=== PATIENT | female | born 1975 | race Caucasian/White ===

== ENCOUNTER 2016-11-23 19:02 | Observation (INO) ==
[2016-11-23 20:04] LABS: Bilirubin,Urine Negative (Negative); Blood,Urine Negative (Negative); Clarity,Urine Clear (Clear); Color,Urine Yellow (Yellow); Glucose,Urine (UA) >=1000 mg/dL (Normal); Ketones,Urine Negative (Negative); Leukocyte Esterase,Urine Negative (Negative); Nitrite,Urine Negative (Negative); Protein,Urine Negative (Neg-Trace); Specific Gravity,Urine > 1.030 (1.010-1.025); Urobilinogen,Urine Normal (Normal)
[2016-11-23 20:11] LABS: Basophils % 0.4 %; Eosinophils # 0.1 K/mcL (0.0-0.6); Hematocrit 41.9 % (35.3-44.9); Hemoglobin 14.4 g/dL (11.5-15.4); Immature Granulocytes % 0.6 % (0-4); Immature Platelets 7.4 % (1.1-6.1); Lymphocytes # 3.1 K/mcL (0.6-4.6); Lymphocytes % 37.3 %; Mean Corpuscular HGB Conc 34.4 g/dL (31.6-35.5); Mean Corpuscular Hemoglobin 30.3 pg (28.0-33.3); Mean Platelet Volume 11.7 fL (9.4-12.4); Monocytes # 0.4 K/mcL (0.0-1.3); Neutrophils # 4.7 K/mcL (1.6-8.9); Platelet Count 243 K/mcL (140-400); Red Blood Count 4.76 M/mcL (3.82-4.97); Segmented Neutrophils % 55.7 %
[2016-11-23 21:41] LABS: Potassium 4.2 mEq/L (3.5-4.5)
[2016-11-23 21:42] LABS: BUN/Creatinine Ratio 14 (6-26); Blood Urea Nitrogen 12 mg/dL (7-20); Carbon Dioxide 16 mEq/L (19-29); Chloride 119 mEq/L (98-109); Glucose 384 mg/dL (70-99); Osmolality,Calculated 328 (280-300); eGFR For African Americans > 60 (> 60); eGFR For Non-African Americans > 60 (> 60)
[2016-11-23 21:43] LABS: Calcium 9.1 mg/dL (8.6-10.8); Sodium 151 mEq/L (136-145)
[2016-11-23] MEDS ORDERED: 0.9 % Sodium Chloride 1,000 ML IVC ONE (21:47)
--- NOTE | 2016-11-23 22:10 | Emergency Department Note ---
Disposition Clinical Impression: Vaginitis Qualifiers: Chronicity: chronic Qualified Code(s): N76.1 - Subacute and chronic vaginitis Diabetes Qualifiers: Diabetes mellitus type: other specified (including KIMBERLY) Diabetes mellitus complication status: with unspecified complications Diabetes mellitus prison insulin use: unspecified prison insulin use status Qualified Code(s): E13.8 - Other specified diabetes mellitus with unspecified complications Diabetic ketoacidosis Qualifiers: Diabetes mellitus type: other specified (including KIMBERLY) Diabetes mellitus complication detail: without coma Qualified Code(s): E13.10 - Other specified diabetes mellitus with ketoacidosis without coma Disposition: Admitted As Inpatient Condition: Good Referrals: Julisa Draper MD [Primary Care Provider] - Forms: ED Satisfaction Letter Time of Disposition: 22:27 Female Urogenital HPI - General Chief complaint: ED Urogenital-Female Stated complaint: Yeast infection Time Seen by Provider: 11/23/16 19:08 Source: patient Limitations: no limitations Nursing Notes Reviewed: Yes Vital Signs Reviewed: Yes - History of Present Illness HPI Narrative: Patient presents to emergency room with complaint of vaginal itching. She has had these symptoms for over a year. She has been on multiple doses of nystatin with some intermittent relief. She does not fall directly with an OB physician or primary care provider. She denies any other issues or complaints at this time Pt Subjective Complaint: vaginal discharge Onset (ago): month(s) Location: labia Radiation: non-radiating Severity: severe Severity scale (1-10): 10 Quality: aching Duration: constant Improves with: none Worsens with: urination, movement Sexual activity: no : no Associated symptoms: Reports: denies other symptoms - Related Data Allergies Allergy/AdvReac Type Severity Reaction Status Date / Time No Known Allergies Allergy Verified 11/23/16 19:06 All systems ED: reviewed and negative except as stated. Constitutional: Denies: fever Cardiovascular: Denies: chest pain, palpitations Respiratory: Denies: dyspnea, wheezes Gastrointestinal: Denies: nausea, vomiting, diarrhea Genitourinary: Reports: dysuria, discharge Musculoskeletal: Denies: back pain, neck pain Integumentary: Reports: rash Past Medical History - Past Medical History Attestation: Yes The following information was validated with the patient. Source: patient Medical history: Reports: diabetes - Social History Smoking Status: Never smoker Smokeless Tobacco Status: No Alcohol use: Reports: none Drug use: Reports: none Physical Exam - General Limitations: no limitations General appearance: alert - Chest Chest inspection: Present: normal inspection, symmetric chest wall rise - Respiratory Respiratory exam: Present: normal lung sounds bilaterally. Absent: respiratory distress, wheezes - Cardiovascular Cardiovascular exam: Present: regular rate, normal rhythm, normal heart sounds - Extremities Exam Extremities exam: Present: normal inspection, full ROM, normal capillary refill. Absent: tenderness - Back Exam Back exam: Present: normal inspection, full ROM. Absent: tenderness, CVA tenderness (R), CVA tenderness (L) - Neurological Exam Neurological exam: Present: alert, oriented X3, CN II-XII intact, normal gait - Psychiatric Psychiatric exam: Present: normal affect, normal mood - Skin Skin exam: Present: warm, dry, intact, normal color Course Course Narrative: Patient seen and examined the time arrival. See history of present illness. 41 -year-old female presents emergency room complaining of vaginal itching. Had the symptoms for approximately one year. She has not been seen by her primary care provider or her OB physician. She has been on multiple doses of Diflucan and Monistat without any symptom relief. She only gets intermittent symptom relief. Patient is a diabetic although she does have issues with compliance of her medication. Patient denies any recent trauma injuries. Denies nausea vomiting or diarrhea. Denies fevers or chills chest pain or shortness of breath. Main complaint is uncontrolled vaginal itching. Based on physical exam patient on basic laboratory workup secondary to her persistent vaginal related issue. We will also do a pelvic examination. The concern is that she is a poorly controlled diabetic getting repeat vaginal infections at this time. Vital signs are reviewed and she is stable. Lungs are clear heart is regular abdomen is soft. Pelvic examination be completed at the bedside. Basic CBC chemistry urinalysis ordered at this time. Patient has no other symptoms or complaints of the time. Disposition pending workup and treatment - Reevaluation(s) Reevaluation #1: Patient phone at a significantly elevated glucose. There is concern basic chemistry panel does show signs of acidemia. After looking at the labs Did discuss this with the patient and her did say that she has been in DKA in the past. Vaginal examination completed at the bedside showing profound discharged with erythema and edema to the pelvic area. Vaginal vault evaluated showing white count she is a discharge in that area. Symptoms appear to be consistent with a yeast infection. Labs to add on at this time will be addressing acetone and a venous blood gas. Fluid boluses to be given at this time. Concern is for patient incidentally being in DKA at this point. Once his labs are resulted patient be started on possible insulin drip for treatment course. Time: 21:30 Reevaluation #2: Hydroxy butyric acid is elevated and the VBG does show some mild acidemia. Insulin drip ordered at this time along with 2 more liters of fluid. First dose of oral Diflucan given at this time as well. Admission process to be completed for what appears to be acute diabetic ketoacidosis secondary to most likely viral illness or her underlying vaginal issue. Swab sent at this time. Disposition pending this workup and treatment course. Admission process to be completed. Hospitals paged Time: 22:24 Reevaluation #3: Patient's medical issues are reviewed with the hospitals. Detailed review the presentation symptoms were discussed. Recommended patient be admitted to the [address] [place] [address] for evaluation treatment of DKA and fluid hydration. No other recommendations at this time. Admission process to be completed. Patient family informed of her comfortable with this plan. We will continue monitoring in the emergency room until admission process is completed at this time Time: 23:02 Vital Signs Temperature 97.9 F 11/23/16 19:03 Pulse Rate 105 11/23/16 19:03 Respiratory Rate 18 11/23/16 19:03 Blood Pressure 116/88 11/23/16 19:03 O2 Sat by Pulse Oximetry 94 11/23/16 19:03 Temperature 97.9 F 11/23/16 19:03 Pulse Rate 105 11/23/16 19:03 Respiratory Rate 18 11/23/16 19:03 Blood Pressure 116/88 11/23/16 19:03 O2 Sat by Pulse Oximetry 94 11/23/16 19:03 Oxygen Delivery Oxygen Delivery Room Air Urogenital-Female - MDM Narrative Medical decision making narrative: Vaginitis secondary to yeast infection, diabetic ketoacidosis, dehydration, - Medical Records Medical records reviewed: Yes I reviewed the patient's medical records. - Lab Data Lab results reviewed: Yes I reviewed the patient's lab results. Result diagrams: 11/23/16 20:01 11/23/16 20:01 Lab Results 11/23/16 11/23/16 11/23/16 Range/Units 19:56 19:56 20:01 WBC 8.4 (4.3-11.1) K/mcL RBC 4.76 (3.82-4.97) M/mcL Hgb 14.4 (11.5-15.4) g/dL Hct 41.9 (35.3-44.9) % MCV 88.0 (83.0-100.0) fL MCH 30.3 (28.0-33.3) pg MCHC 34.4 (31.6-35.5) g/dL RDW 13.0 (11.5-14.5) % Plt Count 243 (140-400) K/mcL MPV 11.7 (9.4-12.4) fL Immature Gran % 0.6 (0-4) % Seg Neutrophils % 55.7 % Lymphocytes % 37.3 % Monocytes % 5.0 % Eosinophils % 1.0 % Basophils % 0.4 % Neutrophils # 4.7 (1.6-8.9) K/mcL Lymphocytes # 3.1 (0.6-4.6) K/mcL Monocytes # 0.4 (0.0-1.3) K/mcL Eosinophils # 0.1 (0.0-0.6) K/mcL Basophils # 0.0 (0.0-0.2) K/mcL Immature Plt Fraction 7.4 H (1.1-6.1) % VBG pH (7.32-7.42) pH Units VBG pCO2 (41-51) mmHg VBG pO2 (25-40) mmHg VBG HCO3 (21-27) mEq/L Sodium (136-145) mEq/L Potassium (3.5-4.5) mEq/L Chloride (98-109) mEq/L Carbon Dioxide (19-29) mEq/L BUN (7-20) mg/dL Creatinine (0.57-1.11) mg/dL Est GFR ( Amer) (> 60) Est GFR (Non-Af Amer) (> 60) BUN/Creatinine Ratio (6-26) Glucose (70-99) mg/dL Calculated Osmolality (280-300) Calcium (8.6-10.8) mg/dL Beta-Hydroxybutyric Acd (0.02-0.27) mmol/L Urine Color Yellow (Yellow) Urine Clarity Clear (Clear) Urine pH 6.0 (5.0-8.0) pH Units Ur Specific Cobb > 1.030 H (1.010-1.025) Urine Protein Negative (Neg-Trace) mg/dL Urine Glucose (UA) >=1000 H (Normal) mg/dL Urine Ketones Negative (Negative) mg/dL Urine Blood Negative (Negative) Urine Nitrite Negative (Negative) Urine Bilirubin Negative (Negative) Urine Urobilinogen Normal (Normal) mg/dL Ur Leukocyte Esterase Negative (Negative) Ur Culture Indicated? NO (NO) Urine Test Negative (Negative) 11/23/16 11/23/16 11/23/16 Range/Units 20:01 20:01 22:16 WBC (4.3-11.1) K/mcL RBC (3.82-4.97) M/mcL Hgb (11.5-15.4) g/dL Hct (35.3-44.9) % MCV (83.0-100.0) fL MCH (28.0-33.3) pg MCHC (31.6-35.5) g/dL RDW (11.5-14.5) % Plt Count (140-400) K/mcL MPV (9.4-12.4) fL Immature Gran % (0-4) % Seg Neutrophils % % Lymphocytes % % Monocytes % % Eosinophils % % Basophils % % Neutrophils # (1.6-8.9) K/mcL Lymphocytes # (0.6-4.6) K/mcL Monocytes # (0.0-1.3) K/mcL Eosinophils # (0.0-0.6) K/mcL Basophils # (0.0-0.2) K/mcL Immature Plt Fraction (1.1-6.1) % VBG pH 7.40 (7.32-7.42) pH Units VBG pCO2 43 (41-51) mmHg VBG pO2 44 H (25-40) mmHg VBG HCO3 26.6 (21-27) mEq/L Sodium 151 H (136-145) mEq/L Potassium 4.2 (3.5-4.5) mEq/L Chloride 119 H (98-109) mEq/L Carbon Dioxide 16 L (19-29) mEq/L BUN 12 (7-20) mg/dL Creatinine 0.88 (0.57-1.11) mg/dL Est GFR ( Amer) > 60 (> 60) Est GFR (Non-Af Amer) > 60 (> 60) BUN/Creatinine Ratio 14 (6-26) Glucose 384 H (70-99) mg/dL Calculated Osmolality 328 H (280-300) Calcium 9.1 (8.6-10.8) mg/dL Beta-Hydroxybutyric Acd 0.32 H (0.02-0.27) mmol/L Urine Color (Yellow) Urine Clarity (Clear) Urine pH (5.0-8.0) pH Units Ur Specific Cobb (1.010-1.025) Urine Protein (Neg-Trace) mg/dL Urine Glucose (UA) (Normal) mg/dL Urine Ketones (Negative) mg/dL Urine Blood (Negative) Urine Nitrite (Negative) Urine Bilirubin (Negative) Urine Urobilinogen (Normal) mg/dL Ur Leukocyte Esterase (Negative) Ur Culture Indicated? (NO) Urine Test (Negative) Attestation Statement - Attestation Attestation: I personally interviewed and examined this patient and my medical decision- making was reviewed with the ED Resident Physician, Dr. Glass. I agree with the documented findings, disposition and treatment plan as described except to the extent set forth below. Patient is a 41-year-old white female brought to the emergency department today by her for recurrent yeast vaginitis. Patient does have a history of diabetes mellitus and is poorly compliant with her medication regimen. Patient does suffer for some from some long-term memory issues and am not sure if this is a component in regards to her compliance with medications. Patient states over the past year she has had chronic recurrent episodes of yeast vaginitis most likely due to her poor diabetic compliance. Patient's been hospitalized twice in the past 4 years for DKA. Patient states that her blood sugars been running a little high but unclear as to what her actual Accu-Cheks. Patient denies any chest pain or pressure, no shortness of breath, no abdominal pain or cramping, no nausea vomiting, patient does complain of some urinary burning as well as vaginal burning and itching and whitish vaginal discharge. We obtained initial urinalysis and which was within normal limits. Patient had pelvic exam which I directly supervised showing a whitish vaginal discharge, wet prep and GC chlamydial cultures were obtained and sent for which are pending at this time. Patient also had IV established with a liter of fluids initiated and blood work which showed evidence of acute Acidosis with hyperglycemia. Patient's beta hydroxybutyrate was elevated consistent with DKA. IV fluids were continued and insulin drip initiated in the ED. Patient's mentation has been stable over time, she is in no acute distress. Explained results with patient has been in regards to admission to the hospital for DKA management. Patient was also given Diflucan for the yeast vaginitis. No obvious infections were found on initial lab workup here in the ED. Patient was accepted for admission by the hospitalist for further evaluation and treatment of her DKA, and yeast vaginitis.
[2016-11-23] MEDS ORDERED: Insulin Regular, Human 100 UNIT/ML IV ONE (22:13)
[2016-11-23] MEDS ORDERED: Insulin Regular, Human 100 UNIT/ML IV PRN (22:13)
[2016-11-23] MEDS ORDERED: *HR* Dextrose 50 % in Water (Syg) 50 ML SYRINGE IVP PRN (22:13)
[2016-11-23] MEDS ORDERED: Insulin Human Regular 100 UNIT in 0.9 % Sodium Chloride 100 ML IVC SCH (22:15)
[2016-11-23 22:28] LABS: VBG HCO3 26.6 mEq/L (21-27); VBG PH 7.4 pH Units (7.32-7.42)
[2016-11-23] MEDS: Fluconazole 100 MG TABLET PO SCH (22:44)
[2016-11-23 23:09] LABS: Candida DNA Not Detected (Not Detect); Gardnerella DNA Not Detected (Not Detect); Trichomonas DNA Not Detected (Not Detect)
[2016-11-23] MEDS ORDERED: D5% in 0.45% NACL 1,000 ML IVC PRN (23:30)
[2016-11-23] MEDS ORDERED: 0.45 % Sodium Chloride w/KCl 20 MEQ/1,000 ML MLS IVC SCH ×2 (23:30→23:45)
[2016-11-23] MEDS ORDERED: D5% in Water 1,000 ML IVC ONE (23:32)
[2016-11-23] MEDS: 0.9 % Sodium Chloride 1,000 ML IVC SCH (23:37)
[2016-11-23] MEDS ORDERED: Acetaminophen 325 MG TABLET PO PRN (23:38)
[2016-11-23] MEDS ORDERED: Naloxone 0.4 MG/ML INJ IVP PRN (23:38)
--- NOTE | 2016-11-23 23:48 | Internal Med History&Physical ---
Date of Encounter: 11/23/16 Time of Encounter: 22:00 Assessment and Plan (1) Diabetic ketoacidosis Current visit: Yes Status: Acute Patient has increased AG and increased osmolarity. Consider DKA and HHS. - We will give patient aggressive IV fluid. - Insulin drip started from the emergency room. - Closer monitor glucoses and electrolytes - Start DKA/HHS protocol - Consult patient educator Qualifiers: Diabetes mellitus type: type 2 Diabetes mellitus complication detail: without coma Qualified Code(s): E13.10 - Other specified diabetes mellitus with ketoacidosis without coma (2) Brain tumor, glioma Current visit: Yes Status: Acute Patient is a following her neurosurgeon at [place] ([place]?) (3) Vaginitis Current visit: Yes Status: Acute Will give patient fluconazole 200 mg daily. Also better glucose control will decrease the chance of fungal vaginitis Qualifiers: Chronicity: chronic Qualified Code(s): N76.1 - Subacute and chronic vaginitis (4) DVT prophylaxis Current visit: Yes Status: Acute Heparin subcutaneously Internal Medicine - H&P: HPI Chief complaint: Virginal itching Admitted From: Home Plans for Post Hospital Care: Home History of present illness: Ms. 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 She has history of diabetes and virginal fungal infection. The emergency room. She was found and controlled the diabetes with DKA and HHS. Patient said she does have thirsty, polydipsia and polyuria recently. She denies nausea, vomiting, abdominal pain, chest pain, or shortness of breath. Patient to take Lantus 60 units every day at bedtime and sliding scale. She said she missed the Lantus dose on and Thursday. She was admitted as DKA and HHS. I discussed the CODE STATUS with patient. She is full code. Past Med Surg Social Fam HX - Past Medical History Source: patient Medical history: diabetes, other (Brain glioma) - Past Surgical History Surgical History: other (Brain tumor surgery) - Social History Smoking Status: Never smoker Smokeless Tobacco Status: No Alcohol use: none Drug use: none Internal Medicine - H&P: Meds Allergies No Known Allergies Allergy (Verified 11/23/16 19:06) All Systems PM: A 10-system review of systems was performed and is negative for pertinent findings except as documented above in the HPI. - Constitutional Vitals: Temp Pulse Resp BP Pulse Ox 97.9 F 105 18 121/77 94 11/23/16 19:03 11/23/16 19:03 11/23/16 23:46 11/23/16 23:46 11/23/16 19:03 General appearance: Present: A&O X 3, no acute distress, answers questions appropriately - Head Head exam: Present: atraumatic, normocephalic - Eye Eye exam: Present: PERRL, conjuntiva pink, sclera anicteric Pupils: Present: PERRL - Neck Neck exam general surgery: Present: supple, trachea midline. Absent: lymphadenopathy - Respiratory Respiratory exam: Present: CTAB. Absent: accessory muscle use, rales, rhonchi, wheezes - Cardiovascular Cardiovascular exam: Present: RRR, +S1, +S2. Absent: diastolic murmur, gallop, rubs, systolic murmur - GI/Abdominal GI/Abdominal exam: Present: normal bowel sounds, soft, no peritoneal signs. Absent: distended, tenderness - Extremities Exam Extremities exam: Present: warm, radial pulses palpable and symetrical. Absent : calf tenderness, cyanotic, pedal edema - Neurological Exam Neurological exam: Present: CN II-XII intact, oriented X3, no focal deficits. Absent: pronater drift, facial droop, speech deficit - Skin Skin exam: Present: dry, intact Internal Med - H&P Results - Labs CBC & Chem 7: 11/24/16 01:19 11/24/16 04:40
[2016-11-24 01:29] LABS: Basophils % 0.4 %; Eosinophils # 0.1 K/mcL (0.0-0.6); Eosinophils % 1.5 %; Hematocrit 38.6 % (35.3-44.9); Immature Granulocytes % 0.5 % (0-4); Lymphocytes # 3.1 K/mcL (0.6-4.6); Lymphocytes % 41.2 %; Mean Corpuscular HGB Conc 33.7 g/dL (31.6-35.5); Mean Corpuscular Volume 89.1 fL (83.0-100.0); Mean Platelet Volume 11.4 fL (9.4-12.4); Monocytes # 0.4 K/mcL (0.0-1.3); Monocytes % 5.5 %; Neutrophils # 3.9 K/mcL (1.6-8.9); Platelet Count 197 K/mcL (140-400); Red Blood Count 4.33 M/mcL (3.82-4.97); Red Cell Distribution Width 12.9 % (11.5-14.5); Segmented Neutrophils % 50.9 %
[2016-11-24 01:38] LABS: BUN/Creatinine Ratio 11 (6-26); Blood Urea Nitrogen 8 mg/dL (7-20); Calcium 8.8 mg/dL (8.6-10.8); Carbon Dioxide 19 mEq/L (19-29); Chloride 112 mEq/L (98-109); Glucose 249 mg/dL (70-99); Hemoglobin A1C 13.6 %; Osmolality,Calculated 301 (280-300); Potassium 3.5 mEq/L (3.5-4.5); Sodium 142 mEq/L (136-145); eGFR For African Americans > 60 (> 60); eGFR For Non-African Americans > 60 (> 60)
[2016-11-24 01:41] LABS: Magnesium 2.9 mg/dL (1.6-2.6); Phosphorous 2.8 mg/dL (2.3-4.7)
[2016-11-24 05:00] LABS: BUN/Creatinine Ratio 15 (6-26); Blood Urea Nitrogen 11 mg/dL (7-20); Calcium 8.5 mg/dL (8.6-10.8); Carbon Dioxide 20 mEq/L (19-29); Chloride 111 mEq/L (98-109); Glucose 298 mg/dL (70-99); Osmolality,Calculated 300 (280-300); Sodium 140 mEq/L (136-145); eGFR For African Americans > 60 (> 60); eGFR For Non-African Americans > 60 (> 60)
[2016-11-24] MEDS ORDERED: D5% in Water 1,000 ML IVC PRN (05:17)
[2016-11-24] MEDS ORDERED: Dextrose Gel 15 GM PO PRN ×2 (05:17)
[2016-11-24] MEDS ORDERED: *HR* Dextrose 50 % in Water (Syg) 50 ML SYRINGE IVP PRN (05:17)
[2016-11-24] MEDS: 0.9 % Sodium Chloride 1,000 ML IVC SCH (07:47)
[2016-11-24] MEDS: Insulin DETEMIR 100 UNIT/ML X5UNITS SQ SCH ×3 (07:49→21:12)
[2016-11-24] MEDS: Insulin LISPRO 300 UNITS/3 ML VIAL SQ SCH ×3 (08:22→17:28)
[2016-11-24] MEDS: Fluconazole 100 MG TABLET PO SCH (08:23)
[2016-11-24] MEDS: *HR* Heparin 5,000 UNIT/ML VIAL SQ SCH ×2 (08:23→17:28)
[2016-11-24] MEDS: Terconazole Vag CRM 20 GM TUBE VG SCH ×2 (13:41→21:14)
[2016-11-24] MEDS ORDERED: Insulin DETEMIR 100 UNIT/ML X5UNITS SQ ONE (15:28)
--- NOTE | 2016-11-24 18:31 | Internal Med Progress Note ---
Date of Encounter: 11/24/16 Time of Encounter: 13:45 - Assessment and plan (1) Hyperglycemia due to type 2 diabetes mellitus Current Visit: Yes Status: Acute Assessment and plan: Hyperglycemia secondary to memory impairment. Patient has brain tumor and keeps forgetting to inject herself Lantus. Patient received IV fluid, and short course of insulin drip with rapid clinical improvement. Patient to start Levemir, sliding scale insulin and diabetic diet. We will attempt to speak with family regarding a better close monitor of her Lantus administration. Qualifiers: Diabetes mellitus halfway insulin use: with truck terminal manager use Qualified Code( s): E11.65 - Type 2 diabetes mellitus with hyperglycemia; Z79.4 - half-way ( current) use of insulin (2) Vaginitis Current Visit: Yes Status: Acute Assessment and plan: Vaginal candidiasis. Start terconazole vaginal cream. Qualifiers: Chronicity: chronic Qualified Code(s): N76.1 - Subacute and chronic vaginitis (3) Diabetes Current Visit: Yes Status: Acute Assessment and plan: Plan as above. Qualifiers: Diabetes mellitus type: type 2 Diabetes mellitus complication status: with hyperglycemia Diabetes mellitus truck terminal manager insulin use: with halfway use Qualified Code(s): E11.65 - Type 2 diabetes mellitus with hyperglycemia; Z79.4 - truck terminal manager (current) use of insulin (4) Brain tumor, glioma Current Visit: Yes Status: Chronic Assessment and plan: History of brain tumor. - Subjective Interval history: Patient denies any nausea, vomiting or abdominal pain. She ate all her breakfast. - Constitutional Vitals: Temp Pulse Resp BP Pulse Ox 98.2 F 85 15 107/71 96 11/24/16 14:53 11/24/16 14:53 11/24/16 14:53 11/24/16 14:53 11/24/16 14:53 General appearance: Present: cooperative, A&O X 3, pleasant, no acute distress, obese, answers questions appropriately - Respiratory Respiratory exam: Present: CTAB - Cardiovascular Cardiovascular exam: Present: RRR - GI/Abdominal GI/Abdominal exam: Present: normal bowel sounds, soft. Absent: distended, tenderness - Extremities Exam Extremities exam: Absent: pedal edema - Back Exam Back exam: Absent: CVA tenderness (L), CVA tenderness (R) - Neurological Exam Neurological exam: Present: alert, oriented X3, no focal deficits, strengths equal and symetr throughout. Absent: facial droop, speech deficit - Skin Skin exam: Absent: rash Internal Medicine: Result - Labs CBC & Chem 7: 11/24/16 01:19 11/24/16 04:40 Labs: Short CBC 11/24/16 Range/Units 01:19 WBC 7.6 (4.3-11.1) K/mcL Hgb 13.0 (11.5-15.4) g/dL Hct 38.6 (35.3-44.9) % Plt Count 197 (140-400) K/mcL Neutrophils # 3.9 (1.6-8.9) K/mcL BMP 11/24/16 11/24/16 01:19 04:40 Sodium 142 D 140 Potassium 3.5 4.0 Chloride 112 H 111 H Carbon Dioxide 19 20 BUN 8 11 Creatinine 0.71 0.75 Glucose 249 H 298 H Calcium 8.8 8.5 L Consult Discharge Plan - Plan Referrals: Julisa Draper MD [Primary Care Provider] - 12/16/16 10:00 am
[2016-11-24] MEDS ORDERED: Insulin LISPRO 300 UNITS/3 ML VIAL SQ SCH (21:00)
[2016-11-25] MEDS: *HR* Heparin 5,000 UNIT/ML VIAL SQ SCH (05:41)
[2016-11-25 07:09] VITALS: BP 101/62
[2016-11-25] MEDS: Insulin DETEMIR 100 UNIT/ML X5UNITS SQ SCH (08:32)
[2016-11-25] MEDS: Fluconazole 100 MG TABLET PO SCH (08:32)
[2016-11-25] MEDS: Insulin LISPRO 300 UNITS/3 ML VIAL SQ SCH (08:32)
--- NOTE | 2016-11-25 09:51 | Discharge Summary ---
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 (2) Vaginitis Priority: Primary Status: Acute Qualifiers: Chronicity: chronic Qualified Code(s): N76.1 - Subacute and chronic vaginitis (3) Diabetes Priority: Primary Status: Chronic Qualifiers: Diabetes mellitus type: type 2 Diabetes mellitus complication status: with hyperglycemia Diabetes mellitus fpc insulin use: with terminal operations manager use Qualified Code(s): E11.65 - Type 2 diabetes mellitus with hyperglycemia; Z79.4 - detention (current) use of insulin (4) Brain tumor, glioma Priority: Secondary Status: Chronic - Discharge Medications Prescriptions: Terconazole Vag CRM [Terazol] 1 appl VG HS #1 tube Home Medications: Citalopram Hydrobromide [Citalopram HBr] 10 mg PO DAILY 11/24/16 [History] Insulin Glargine,Hum.rec.anlog [Lantus Solostar] 60 unit SQ HS 11/24/16 [History ] Insulin LISPRO [Humalog Kwikpen U-100] 0 unit SQ TIDWM 11/24/16 [History] Terconazole Vag CRM [Terazol] 1 appl VG HS #1 tube 11/25/16 [Rx] Allergies/Adverse Reactions: Allergies No Known Allergies Allergy (Verified 11/24/16 09:49) Date of admission: 11/23/16 23:09 Primary care physician: Julisa Hull Consults: 11/23/16 23:47 Consult to [facility] [CONS] Routine Comment: Reason for Consult: DKA/HHS - Patient Status Disposition: Home, Self-Care Condition: Good Functional capacity at discharge: independent ambulation Overall status at discharge: patient is progressing back to baseline - Discharge Instructions Instructions: Diabetes Mellitus Type 2 in Adults (DC) Follow Up With: Julisa Draper MD [Primary Care Provider] - 12/16/16 10:00 am Additional Instructions: please monitor your sugars closely: before meals and at bedtime. write down the numbers and bring the record to your doctor's appointment. please start an exercise program (kyaw and walking would be good). - Diet and Activity Activity: resume usual activities as tolerated Diet: diabetic diet, low fat, low cholesterol, low salt diet Interval History: patient reports her vaginal itching is better. Hospital course: Ms. Moe is a 41 year old female with past medical history of diabetes mellitus , insulin-dependent, brain glioma status post surgery. She presented with a chief complaint of vaginal itching. She was admitted with diagnosis of severe hyperglycemia secondary to vaginal candidiasis. She received IV fluids, and short period of insulin drip with clinical improvement. Unfortunately, patient has severe memory difficulties after brain surgery. Ice spoke with family and they are aware of her memory problems and they work with her to ensure that the patient receives insulin every day. Patient was eating and ambulating well. Her vaginal tones were good control at discharge. PLAN: Follow-up with primary care physician in one week. - Time Spent with Patient Total time spent providing and/or coordinating discharge services: - Constitutional Vitals: Temp Pulse Resp BP Pulse Ox 98.3 F 80 19 101/62 93 11/25/16 07:07 11/25/16 07:07 11/25/16 07:07 11/25/16 07:07 11/25/16 03:13 General appearance: Present: cooperative, A&O X 3, pleasant, no acute distress, obese, answers questions appropriately - Neck Neck exam general surgery: Present: supple, trachea midline. Absent: lymphadenopathy - Respiratory Respiratory exam: Present: CTAB - Cardiovascular Cardiovascular exam: Present: RRR - GI/Abdominal GI/Abdominal exam: Present: normal bowel sounds, soft. Absent: distended, tenderness - Extremities Exam Extremities exam: Absent: pedal edema - Back Exam Back exam: Absent: CVA tenderness (L), CVA tenderness (R) - Neurological Exam Neurological exam: Present: alert, oriented X3, no focal deficits, strengths equal and symetr throughout. Absent: facial droop, speech deficit - Skin Skin exam: Absent: rash
== END 2016-11-25 12:13 | disposition home or self-care (01) ==
LOC: 2NNU 19:02 → EMEROO 19:02 → 2NNU 23:48 → 3BNU 11-24 11:52
PROVIDERS: ADMIT Internal Medicine; ATTEND Internal Medicine